=== PATIENT | female | born 1960 ===

== ENCOUNTER 2017-05-05 09:40 | Day surgery (SDC) | payer MEDICAID ==
[2017-05-05 10:07] VITALS: BMI 29.5
[2017-05-05] MEDS ORDERED: Bupivacaine 0.5% Inj(30mL) IJ ONE (10:39)
[2017-05-05] MEDS ORDERED: Lidocaine 1% Inj (20ml) IJ ONE ×2 (10:39→12:00)
[2017-05-05] MEDS ORDERED: ceFAZolin 2 GM in Sodium Chloride 0.9% 100 ML IVPB ONE (10:39)
--- NOTE | 2017-05-05 10:39 | CP.SDSHP ---
Same Day Surgery H & P - History Proposed Procedure: 1st met osteotomy, 2 and 3 HT, Alexander of 2 and 3 - Left foot Pre-Op Diagnosis: Left foot bunion, hammer digits 2 and 3 - Allergies Allergies: Allergies codeine Allergy (Verified 05/03/17 11:44) HEADACHE - Physical Exam Neuro: WNL Heart: WNL Lungs: WNL GI: WNL - {Optional Preform as Required} Ortho: Other - Impression Impression: Pt was seen and examined in [facility]. Pt NPO status was confirmed. All Pre-op testing and clearance was in the chart. Pt has exhausted all conservative treatment at this time and is opting for surgical intervention. Pt was explained procedure and post-operative course. All pt's questions were answered to satisfaction. No guarantees were made. Pt understands all risks, benefits and complications of procedure. Pt will follow-up with Dr. Lucio Short Stay Discharge - Short Stay Discharge Admitting Diagnosis/Reason for Visit: M20.12/M20.42/S93.125A Disposition: HOME/ ROUTINE Referrals: Savannah Shepherd [Primary Care Provider] - Additional Instructions (Diet, Activity): Patient in good/stable condition for discharge home. Pt to resume medications per medical reconciliation. Resume regular diet. Please keep dressing clean, dry, & intact to surgical site, use plastic bag over bandage for showering, wear post op shoe at all times when ambulating, call clinic if you see signs of infection (redness, swelling, malodor), please make an appointment to see Dr. Lucio in office/clinic within 1 week for post-op check. Progress Note/Discharge Note with Instructions: - Patient evaluated bedside in recovery s/p surgical procedure. - After surgical procedure patient in NAD - (+) Void, (+) Appetite - Capillary refill time <3s and NVSI intact. - Patient denies complaints at this time - Post operative instructions and plan of care explained to patient at length. - Pt. acknowledges understanding. - Patient stable for DC per podiatric surgery
[2017-05-05 10:43] VITALS: RESP 18
[2017-05-05] MEDS ORDERED: Sodium Chloride 0.9% 1,000 ML IV SCH (10:45)
--- NOTE | 2017-05-05 10:46 | CP.PCM.PN ---
Subjective - Date & Time of Evaluation Date of Evaluation: 05/05/17 Time of Evaluation: 10:42 - Subjective Subjective: 56 y/o female with PMHx of HTN, hyperlipidemia seen in [facility] for 1st met osteotomy , 2 and 3 HT repair, and Alexander osteotomy of 2 and 3 of the left foot. Patient states that her foot has been really painful for a while which led her decision to having the surgery. Patient states that she has not had anything to eat or drink since midnight. Patient denies of any adverse anesthesia reaction. Patient denies of any recent F/N/V/C/SOB/CP today. Patient denies of any other pedal complains at this time. PMHx: HTN, Hyperlipidemia PSHx: left eye surgery Allergies: Codeine SHx: 10 cig a day x 30 years, denies of EtOH or illicit drug usage Objective - Medications Medications: Current Medications Bupivacaine HCl (Marcaine 0.5%) 50 ml IJ ONCE ONE Stop: 05/05/17 10:40 Cefazolin Sodium 2 gm/ Sodium (Chloride) 100 mls @ 100 mls/hr IVPB ONCE ONE Stop: 05/05/17 11:38 Sodium Chloride (Sodium Chloride 0.9%) 1,000 mls @ 110 mls/hr IV .Q9H6M GIANNI Stop: 05/06/17 10:41 Lidocaine HCl (Lidocaine 1% (20ml)) 20 ml IJ ONCE ONE Stop: 05/05/17 10:40 - Constitutional Appears: Well, Non-toxic, No Acute Distress - Extremities Exam Additional comments: Left Lower Extremity exam: VASC: DP/PT pulses are palpable 2/4, Cap refill time: < 3 sec to all digits, Temp gradient: warm to cool from proximal to distal, no pitting or non-pitting edema noted DERM: mild hyperkeratotic lesion noted submetatarsal 2 and 3, no erythema, no open lesions, no clinical suspicion of active infection NEURO: Protective sensation grossly intact ORTHO: hallux is deviated laterally on 1st metatarsal, hammering of the digits 2 and 3 noted, 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) - Neurological Exam Neurological Exam: Alert, Awake, Oriented x3 - Psychiatric Exam Psychiatric exam: Normal Affect, Normal Mood Assessment and Plan - Assessment and Plan (Free Text) Assessment: 56 y/o female seen at bedside in [facility] for left foot hallux abductovalgus osteotomy, arthroplasty of 2nd and 3rd digit, and alexander osteotomy of 2nd and 3rd Plan: Pt was seen and examined in [facility] Pt NPO status was confirmed All Pre-op testing and clearance was in the chart Pt has exhausted all conservative treatment at this time and is opting for surgical intervention Pt was explained procedure and post-operative course All pt's questions were answered to satisfaction No guarantees were made Pt understands all risks, benefits and complications of procedure Pt will follow-up with Dr. Lucio
[2017-05-05] MEDS ORDERED: Lactated Ringer's 500 ML IV ONE (11:00)
[2017-05-05] MEDS ORDERED: Dexamethasone 4 mg/1 ml ONE (11:17)
[2017-05-05] MEDS ORDERED: Bupivacaine 0.5% Inj(30mL) ONE (11:17)
[2017-05-05] MEDS ORDERED: Lidocaine 1% Inj (20ml) ONE (11:17)
[2017-05-05] MEDS ORDERED: Propofol 10 mg/ml Inj (20 ML) ONE ×3 (11:50→14:07)
[2017-05-05] MEDS ORDERED: Midazolam 2 MG/2 ML VIAL ONE (11:51)
[2017-05-05] MEDS ORDERED: Lidocaine Hydrochloride 5 ML INJ ONE (11:57)
[2017-05-05] MEDS ORDERED: Bupivacaine 0.5% 50 ML IJ ONE ×3 (12:00→14:14)
[2017-05-05] MEDS ORDERED: Sodium Chloride 0.9% 250 ML IV ONE ×2 (12:05→13:15)
[2017-05-05] MEDS ORDERED: Sodium Chloride 0.9% 100 ML IV ONE (14:07)
[2017-05-05] MEDS ORDERED: HYDROmorphone 0.5 mg/0.5 ml ISec IVP PRN (14:27)
--- NOTE | 2017-05-05 14:29 | PCM.SURG1 ---
Surgeon's Initial Post Op Note - Surgeon's Notes Surgeon: Dr. Cyril Lucio DPM Cash Van Salesperson: Dr. Pearce (PGY-2), Dr. Wright (PGY-2) Type of Anesthesia: IV Sedation, Local Anesthesia Administered By: Dr. Harrison Pre-Operative Diagnosis: Left foot Hallux abducto valgus, 2-3 digit Hammer toe Operative Findings: See dictation. M: 14, 16 2.0 mm nataliia screw, 2-0, 3-0, 4- 0 vicryl, 4-0 prolene, 4-0 monocryl, 4-5 K wire. I: 9 cc of 0.5% marcain plain Post-Operative Diagnosis: Same Operation Performed: left foot HAV correction, 3rd digit hammer toe correction Specimen/Specimens Removed: none Estimated Blood Loss: EBL {In ML}: 5 Blood Products Given: N/A Drains Used: No Drains Post-Op Condition: Good Date of Surgery/Procedure: 05/05/17 Time of Surgery/Procedure: 14:30
[2017-05-05 15:41] VITALS: BP 134/68; PULSE 54; TEMP 97.5; O2SAT 96
--- NOTE | 2017-05-06 15:53 | OP ---
PROCEDURE DATE: 05/05/2017 PREOPERATIVE DIAGNOSIS: Left foot hallux abductovalgus and left foot contracture third digit. POSTOPERATIVE DIAGNOSIS: Left foot hallux abductovalgus and left foot contracture third digit. PROCEDURES: 1. Left foot first metatarsal osteotomy. 2. Left foot third digit proximal interphalangeal joint arthroplasty. SURGEON: Dr. Cyril Lucio. RIG MANAGER: Stacy Pearce DPM, PGY-2; Dr. Adriana DPM, PGY-2. TYPE OF ANESTHESIA: IV sedation with local. ANESTHESIA ADMINISTERED BY:Dr. Harrison. INDICATIONS: The patient is a 56-year-old female with the above diagnoses. The patient has exhausted all conservative treatments at this time and now requires surgical intervention. The patient signed the consent after careful explanation of risks, benefits, complications and alternatives for surgical procedure. No guarantees were given or implied. PREPARATION: The patient was brought into the operating room and placed on the operating room table in a supine position. A well-padded pneumatic ankle tourniquet was applied to the patient's left ankle in the supramalleolar position. A time-out was performed for correct identification of the patient and procedure. After induction of IV sedation, the patient received a total of 20 mL of 1:1 mixture of 1% lidocaine plain and 0.5% Marcaine plain in a local block fashion to the left foot. Once local anesthesia was achieved, the left foot was then prepped and draped in the normal sterile manner and the procedure began. Procedure 1: Left first metatarsal osteotomy. Attention was directed to the dorsal aspect of the first metatarsal head on the left foot where an approximately 6 cm linear longitudinal incision was made medial and parallel to the tendon of the extensor hallucis longus and involved the contour of the deformity. The incision was deepened to the subcutaneous tissue using sharp and blunt dissection. Care was taken to identify and retract all vital and neurovascular structures. All bleeders were cauterized and ligated as necessary. Attention was then directed to the first interspace via the original incision where the tendon of the extensor hallucis brevis was identified and tenotomized. Dissection was continued deep using blunt dissection down to the level of the fibular sesamoid which was freed of its soft tissue attachment proximally, laterally and distally. The conjoint tendon of the adductor hallucis muscle was then identified and transected at its attachment at the base of the proximal phalanx of the hallux. At this time, the lateral contracture present on the hallux was noted to be reduced and the sesamoid apparatus was noted to float to a more crested medial position. At this time, an inward outside capsulotomy was performed of the dorsal aspect of the first metatarsophalangeal joint. The periosteum and capsular structures were then carefully dissected free of their osseous attachments and resected medially and laterally, thus exposing the head of the first metatarsal into the operative site. Next, utilizing the sagittal bone saw, the dorsal and medial prominences were resected and passed off the operative field. All rough edges were then smoothed down using the sagittal saw. At this time, attention was then directed to the medial aspect of the first metatarsal head, where a [id number] V-type osteotomy was created in metaphyseal region of the bone utilizing a sagittal saw. [place] of osteotomy pointed distally with arms pointing proximal, plantar and proximal dorsal. The dorsal arm was the longest to accommodate internal fixation. Upon completion of the osteotomy, the capital fragment was distracted and shifted laterally into more proper position and impacted on the first metatarsal shaft. At this time, two 0.045 inch K-wires were driven through dorsal to plantar across the osteotomy site to create a temporary fixation. Following sequential movements of the K-wire and following standard AO technique, a 2.0 x 14 mm and a 2.0 x 16 mm [place] cannulated cortical screw was inserted and placed across the osteotomy site with excellent compression noted. The remaining K-wires were removed. Attention was then directed to the medial bone shaft, which was resected utilizing the sagittal saw and passed off the operative site. Correction of the deformity was assessed at this time and noted to be excellent. The site was then irrigated with copious amounts of normal sterile saline solution. The periosteum and capsular structures were then reapproximated and coapted using 2-0 and 3-0 Vicryl. Redundant capsular tissues were resected as necessary. The subcutaneous tissues were then reapproximated and coapted using 4-0 Vicryl. Skin was then reapproximated using Monocryl in a subcuticular technique. Procedure 2: Left third digit PIPJ arthroplasty. Attention was then directed to the third digit of the patient's foot, which was noted to be contracted and approximately 1 cm incision was made on the dorsal aspect of the proximal interphalangeal joint of the third digit in a linear longitudinal orientation. Sharp dissection was carried down to the deep tissue being careful to identify and retract all vital and neurovascular structures. At this time, a transverse tenotomy and capsulotomy were performed at the proximal interphalangeal joint and the head of the proximal phalanx was then freed off its capsular and ligamentous attachments. Next, utilizing the sagittal saw, the head of the proximal phalanx was resected and passed off the operative site and sent to pathology. The site was then irrigated with copious amounts of normal sterile saline. The tendon was then reapproximated with 4-0 Vicryl. The skin was then reapproximated with 4-0 Prolene. Postoperative block consistent with 10 mL of 0.5% Marcaine plain was given in a local block fashion to the left foot. The foot was dressed with Betadine soaked Adaptic, 4x4's, Narcisa and lastly Kal. POSTOPERATIVE CONDITION: The patient tolerated the anesthesia and procedure well, was brought into the recovery room with vital signs stable and neurovascular status intact to the left foot. The patient will be followed by Dr. Lucio in the office. Stacy Pearce DPM Cyril Lucio DPM. TOMI
== END 2017-05-05 17:30 | disposition home or self-care (01) ==
LOC: H.OPSURG 09:40
PROVIDERS: ATTEND Student in an Organized Health Care Education/Training Program
DX: M20.12 Hallux valgus (acquired), left foot (principal); M20.42 Other hammer toe(s) (acquired), left foot; E78.5 Hyperlipidemia, unspecified; I10 Essential (primary) hypertension; F17.200 Nicotine dependence, unspecified, uncomplicated
CPT/HCPCS: 28291; 28292; 88304; 88311; 97116; 97161; C1713; C1769; G8978; G8979; G8980; J0690; J1885; J2250; J2704; J3010; J7030; J7040; J7120

== ENCOUNTER 2018-07-01 19:04 | Emergency (ER) | payer MEDICAID, OTHER ==
[2018-07-01 19:05] VITALS: BMI 29.5
[2018-07-01] MEDS ORDERED: Albuterol-Ipratrop 3 mg / 0.5 (3 ml) UD INH STA (20:08)
[2018-07-01] MEDS ORDERED: Albuterol-Ipratrop 3 mg / 0.5 (3 ml) UD ONE (20:14)
--- NOTE | 2018-07-01 20:49 | ED PDOC ---
HPI: Influenza Time Seen by Provider: 07/01/18 19:39 Chief Complaint: Cough, Cold, Congestion Chief Complaint (Provider): Cough, Cold, Congestion History Per: Patient Exam Limitations: no limitations Additional complaint(s):: 57 y/o female with history of HTN and high cholesterol presents to the ED complaining of cough and chest tightness, onset x3 days ago. Patient states that her cough has been productive of phlegm but has not had any hemoptysis. Patient also reports associated nasal congestion. Denies any sore throat or fever. Patient is taking Coricidin cough medication with minimal relief. She states that today she felt chest tightness and palpitations prompting ED visit. Patient reports that during winter she sometimes gets her URI treated with Albuterol but has not taken it yet. Past Medical History Vital Signs: Last Vital Signs Temp 98.3 F 07/01/18 19:14 Pulse 80 07/01/18 19:14 Resp 18 07/01/18 19:14 BP 122/79 07/01/18 19:14 Pulse Ox 99 07/01/18 19:14 - Medical History PMH: Anemia, HTN, Hypercholesterolemia Denies: Chronic Kidney Disease - Family History Family History: States: CAD, Hypertension - Social History Current smoker - smoking cessation education provided: Yes - Home Medications Home Medications: Ambulatory Orders Medication Instructions Recorded Aspirin [Aspirin Chewable] 81 mg PO DAILY 05/05/17 Cephalexin [cephalexin] 500 mg PO TID 05/05/17 Enalapril Maleate [Vasotec] 5 mg PO DAILY 05/05/17 Ibuprofen [Motrin Tab] 200 mg PO ASDIR 05/05/17 Metoprolol Tartrate [Lopressor] 50 mg PO DAILY 05/05/17 Pravastatin Sodium [Pravachol] 10 mg PO DAILY 05/05/17 Tramadol HCl [Conzip] 100 mg PO Q4 PRN 05/05/17 hydroCHLOROthiazide [Microzide] 12.5 mg PO DAILY 05/05/17 Albuterol HFA [Ventolin HFA 90 2 puff IH Q4H PRN #1 inh 07/01/18 mcg/actuation (8 g)] Prednisone 50 mg PO DAILY #4 tablet 07/01/18 - Allergies Allergies/Adverse Reactions: Allergies Allergy/AdvReac Type Severity Reaction Status Date / Time codeine Allergy HEADACHE Verified 05/03/17 11:44 Review of Systems ROS Statement: Except As Marked, All Systems Reviewed And Found Negative (as per HPI otherwise negative) Constitutional: Negative for: Fever ENT: Positive for: Nose Congestion. Negative for: Throat Pain Cardiovascular: Positive for: Chest Pain, Palpitations Respiratory: Positive for: Cough, Sputum. Negative for: Hemoptysis Physical Exam - Reviewed Nursing Documentation Reviewed: Yes Vital Signs Reviewed: Yes - Physical Exam Appears: Positive for: Non-toxic, In Acute Distress Head Exam: Positive for: ATRAUMATIC, NORMOCEPHALIC Skin: Positive for: Warm, Dry Eye Exam: Positive for: EOMI, PERRL ENT: Positive for: Nasal Congestion, Other (boggy nasal membranes) Neck: Positive for: Painless ROM, Supple Cardiovascular/Chest: Positive for: Regular Rate, Rhythm, Chest Non Tender. Negative for: Murmur Respiratory: Positive for: Wheezing (bilateral expiratory ), Respiratory Distress (mild). Negative for: Rales Gastrointestinal/Abdominal: Positive for: Soft. Negative for: Tenderness Back: Positive for: Normal Inspection. Negative for: Decreased ROM Extremity: Positive for: Pedal Edema (trace bilateral lower extremity edema) Lymphatic: Negative for: Adenopathy Neurologic/Psych: Positive for: Alert. Negative for: Motor/Sensory Deficits Medical Decision Making Medical Decision Making: Time: 20:08 Initial Impression: URI and Bronchitis Differential included but not limited to pneumonia Initial Plan: * EKG * CXR * Albuterol * Solumedrol Time: 21:05 Patient reports feeling better. DW pt findings and plan of care Scribe Attestation: Documented by Octaviano Espinoza acting as a scribe for Carol Culver MD. Provider Scribe Attestation: All medical record entries made by the Scribe were at my direction and personally dictated by me. I have reviewed the chart and agree that the record accurately reflects my personal performance of the history, physical exam, medical decision making, and the department course for this patient. I have also personally directed, reviewed, and agree with the discharge instructions and disposition. - ECG ECG Rhythm: Positive for: Normal QRS, Normal ST Segment, Sinus Rhythm Rate: 73 O2 Sat by Pulse Oximetry: 99 Disposition - Clinical Impression Clinical Impression: Bronchitis, URI (upper respiratory infection) Counseled Patient/Family Regarding: Studies Performed, Diagnosis, Need For Followup, Rx Given - Disposition Disposition: Routine/Home Disposition Time: 21:00 Condition: IMPROVED Additional Instructions: VISIT YOUR DOCTOR ON TUESDAY FOR REEVALUATION Prescriptions: Albuterol HFA [Ventolin HFA 90 mcg/actuation (8 g)] 2 puff IH Q4H PRN #1 inh PRN Reason: ASTHMA Prednisone 50 mg PO DAILY #4 tablet Instructions: Acute Bronchitis, Adult (DC), Viral Upper Respiratory Infection, Adult (DC), Quitting Smoking Forms: [facility] ED School/Work Excuse
[2018-07-01 21:09] VITALS: BP 135/78; RESP 16; TEMP 98.5
[2018-07-01 22:04] VITALS: PULSE 73; O2SAT 99
--- NOTE | 2018-07-02 10:07 | CARD ---
APPROVED REPORT Date of service: 07/01/2018 EKG Measurement Heart [id number] <Conclusion> Sinus rhythm with 1st degree AV block Possible Left atrial enlargement Borderline ECG
--- NOTE | 2018-07-02 10:15 | RAD ---
Date of service: 07/01/2018 HISTORY: sob COMPARISON: Comparison made with chest radiograph 03/31/2015. TECHNIQUE: Chest PA and lateral FINDINGS: LUNGS: Increased-coarsened interstitial markings with scattered peribronchial cuffing changes. Rule out sequela of reactive/inflammatory airway disease or viral. PLEURA: No significant pleural effusion identified. No pneumothorax apparent. CARDIOVASCULAR: No aortic atherosclerotic calcification present. Normal cardiac size. No pulmonary vascular congestion. OSSEOUS STRUCTURES: No significant abnormalities. VISUALIZED UPPER ABDOMEN: Normal. OTHER FINDINGS: None. IMPRESSION: Increased-coarsened interstitial markings with scattered peribronchial cuffing changes. Rule out sequela of reactive/inflammatory airway disease or viral.
== END 2018-07-01 21:25 | disposition home or self-care (01) ==
LOC: H.ER 19:04
DX: J40 Bronchitis, not specified as acute or chronic (principal); J06.9 Acute upper respiratory infection, unspecified; F17.200 Nicotine dependence, unspecified, uncomplicated; I10 Essential (primary) hypertension; Z82.49 Family history of ischemic heart disease and other diseases of the circulatory system; Z79.82 Long term (current) use of aspirin; Z79.899 Other long term (current) drug therapy
CPT/HCPCS: 71046; 93005; 96372; 99283; J2930

== ENCOUNTER 2018-09-16 01:38 | Emergency (ER) | payer MEDICAID ==
[2018-09-16 01:39] VITALS: BMI 29.5
--- NOTE | 2018-09-16 03:46 | ED PDOC ---
Upper Extremity Pain/Injury Time Seen by Provider: 09/16/18 03:07 Chief Complaint (Nursing): Upper Extremity Problem/Injury Chief Complaint (Provider): Upper Extremity Problem/Injury History Per: Patient History/Exam Limitations: no limitations Current Symptoms Are (Timing): Still Present Additional Complaint(s): Twyla Luo is 57 year old female with a past medical history of HTN, anxiety and hypercholesterolemia, who presents to the emergency department with severe pain to the left hand. Patient states that she was picking up a young child and her left hand slipped, causing her to pull her 3rd digit distally. Since incident, pain has been excruciating, sharp and located in the left hand and wrist. Patient denies having other injuries or any previous injury to the hand. PMD: No provider Past Medical History Reviewed: Historical Data, Nursing Documentation, Vital Signs Vital Signs: Last Vital Signs Temp 97.3 F L 09/16/18 02:44 Pulse 73 09/16/18 02:44 Resp 16 09/16/18 02:44 BP 140/82 09/16/18 02:44 Pulse Ox 100 09/16/18 02:44 - Medical History PMH: Anemia, HTN, Hypercholesterolemia Denies: Chronic Kidney Disease - Surgical History Surgical History: No Surg Hx - Family History Family History: States: CAD, Hypertension - Home Medications Home Medications: Ambulatory Orders Medication Instructions Recorded Cephalexin [cephalexin] 500 mg PO TID 05/05/17 Enalapril Maleate [Vasotec] 5 mg PO DAILY 05/05/17 Ibuprofen [Motrin Tab] 200 mg PO ASDIR 05/05/17 Metoprolol Tartrate [Lopressor] 50 mg PO DAILY 05/05/17 Pravastatin Sodium [Pravachol] 10 mg PO DAILY 05/05/17 RX: Aspirin [Aspirin Chewable] 81 mg PO DAILY 05/05/17 RX: hydroCHLOROthiazide [Microzide] 12.5 mg PO DAILY 05/05/17 Tramadol HCl [Conzip] 100 mg PO Q4 PRN 05/05/17 RX: Albuterol HFA [Ventolin HFA 90 2 puff IH Q4H PRN #1 inh 07/01/18 mcg/actuation (8 g)] RX: Prednisone 50 mg PO DAILY #4 tablet 07/01/18 - Allergies Allergies/Adverse Reactions: Allergies Allergy/AdvReac Type Severity Reaction Status Date / Time codeine Allergy HEADACHE Verified 05/03/17 11:44 Review of Systems ROS Statement: Except As Marked, All Systems Reviewed And Found Negative Musculoskeletal: Positive for: Hand Pain (and left wrist pain) Physical Exam - Reviewed Nursing Documentation Reviewed: Yes Vital Signs Reviewed: Yes - Physical Exam Appears: Positive for: Non-toxic, No Acute Distress Head Exam: Positive for: ATRAUMATIC, NORMOCEPHALIC Cardiovascular/Chest: Positive for: Regular Rate, Rhythm. Negative for: Murmur Respiratory: Positive for: Normal Breath Sounds. Negative for: Respiratory Di stress Extremity: Positive for: Tenderness (Tenderness to palpation to the anterior hand), Other (refusing to flex or bend hand at the wrist). Negative for: Deformity (no visible deformities) - ECG O2 Sat by Pulse Oximetry: 100 (RA) Pulse Ox Interpretation: Normal Medical Decision Making Medical Decision Making: Time: 315 A/P: Injury to the left hand, rule out dislocation or fracture. Toradol for pain and xray of left wrist and hand and reassess patient. --Toradol 15 mg IM --Left hand xray 3 views --Left wrist xray 3 views [id number] Upon reevaluation, patient shows decreased flexion to DIP and PIP joint at the left 3rd digit. Finger is to be placed in splint and follow up with hand specialist. Scribe Attestation: Documented by Alex Hinojosa acting as a scribe for Rachna Solis MD. Provider Scribe Attestation: All medical record entries made by the Scribe were at my direction and personally dictated by me. I have reviewed the chart and agree that the record accurately reflects my personal performance of the history, physical exam, medical decision making, and the department course for this patient. I have also personally directed, reviewed, and agree with the discharge instructions and disposition. Disposition - Clinical Impression Clinical Impression: Injury of finger, Colton finger - Disposition Referrals: Faisal Morgan MD [Medical Doctor] - Disposition: Routine/Home Disposition Time: 04:06 Condition: IMPROVED Additional Instructions: Take Tylenol or Motrin for pain. Keep splint on finger for all activities except bathing to prevent worsened injury. Follow up with orthopedic/hand surgeon within one week. Return to the emergency department if symptoms worsen or if new symptoms develop. Instructions: Common Finger Injuries (DC) Forms: [facility] (Upper Sorbian) Print Language: WELSH
[2018-09-16 06:59] VITALS: BP 134/86; PULSE 61; RESP 17; TEMP 97.7
--- NOTE | 2018-09-16 10:23 | RAD ---
Date of service: 09/16/2018 PROCEDURE: Left Wrist Radiographs. Left Hand Radiographs. HISTORY: pain to left hand COMPARISON: None. FINDINGS: BONES: No acute fracture. JOINTS: Unremarkable. SOFT TISSUES: Normal. OTHER FINDINGS: None. IMPRESSION: No demonstrated fracture or dislocation.
[2018-09-17 01:56] VITALS: O2SAT 100
== END 2018-09-16 04:55 | disposition home or self-care (01) ==
LOC: H.ER 01:38
DX: M20.012 Mallet finger of left finger(s) (principal); E78.00 Pure hypercholesterolemia, unspecified; I10 Essential (primary) hypertension
CPT/HCPCS: 29130; 73110; 73130; 96372; 99284; J1885